=== PATIENT | male | born 1960 | race Two or more races ===

== ENCOUNTER 2018-12-10 10:09 | Outpatient (CLI) | payer OTHER ==
[~2018-12-10 10:09] MED LIST: GAVISCON ES TA1 EACH; LEVSIN0.125 MG PO; ZANTAC150 M3; ZANTAC300 MG PO; ZOFRAN8 MG PO
== END 2018-12-10 10:18 | disposition home or self-care (01) ==
LOC: TOM 10:09
DX: K86.81 Exocrine pancreatic insufficiency (principal); B20 Human immunodeficiency virus [HIV] disease

== ENCOUNTER 2019-08-10 17:56 | Outpatient (CLI) | payer OTHER | END 2019-08-10 18:29 | disposition home or self-care (01) | LOC: RAD 17:56 | DX: M54.5 Low back pain (principal) ==

== ENCOUNTER 2019-09-03 18:41 | Outpatient (CLI) | payer OTHER | END 2019-09-03 18:56 | disposition home or self-care (01) | LOC: RAD 18:41 | DX: M53.3 Sacrococcygeal disorders, not elsewhere classified (principal); M25.552 Pain in left hip; M25.551 Pain in right hip ==

== ENCOUNTER 2019-12-03 09:37 | Outpatient (CLI) | payer OTHER | END 2019-12-03 09:51 | disposition home or self-care (01) | LOC: RAD 09:37 → MRI 10:15 | PROVIDERS: ATTEND Physical Medicine & Rehabilitation Pain Medicine | DX: S32.030D Wedge compression fracture of third lumbar vertebra, subsequent encounter for fracture with routine healing (principal); M41.85 Other forms of scoliosis, thoracolumbar region | CPT/HCPCS: 72148 ==

== ENCOUNTER 2020-01-07 13:17 | Outpatient (CLI) | payer OTHER | END 2020-01-07 13:43 | disposition home or self-care (01) | LOC: NUCLEAR 13:17 | PROVIDERS: ATTEND Physical Medicine & Rehabilitation Pain Medicine | DX: M80.00XA Age-related osteoporosis with current pathological fracture, unspecified site, initial encounter for fracture (principal) ==

== ENCOUNTER 2020-01-15 08:54 | Emergency (ER) | payer OTHER ==
[~2020-01-15] VITALS: Ht 167.6 cm; Wt 99.8 kg
[2020-01-15] MEDS ORDERED: BIKTARVY 50-201 EACH (09:30)
[2020-01-15] MEDS ORDERED: COZAAR50 MG (09:30)
[2020-01-15] MEDS ORDERED: TERAZOSIN HCL1 M1 (09:32)
[2020-01-15] MEDS ORDERED: FINASTERIDE1 MG (09:32)
== END 2020-01-15 13:16 | disposition home or self-care (01) ==
LOC: ER 08:54
DX: A90 Dengue fever [classical dengue] (principal); B34.9 Viral infection, unspecified

== ENCOUNTER 2021-02-19 17:10 | Emergency (ER) | payer OTHER ==
[~2021-02-19] VITALS: Ht 167.6 cm; Wt 104.3 kg
[~2021-02-19 17:10] MED LIST changes: +BIKTARVY 50-201 EACH; +COZAAR50 MG; +FINASTERIDE1 MG; +TERAZOSIN HCL1 M1
[2021-02-19] MEDS ORDERED: FINASTERIDE5 MG PO (17:21)
[2021-02-19] MEDS ORDERED: TERAZOSIN HCL2 M1 PO (17:21)
[2021-02-19] MEDS ORDERED: LOSARTAN POTAS100 MG PO (17:21)
== END 2021-02-19 21:05 | disposition home or self-care (01) ==
LOC: ER 17:10
DX: R51.9 Headache, unspecified (principal); Z20.828 Contact with and (suspected) exposure to other viral communicable diseases

== ENCOUNTER 2021-05-08 14:36 | Outpatient (CLI) | payer OTHER ==
[~2021-05-08 14:36] MED LIST changes: +FINASTERIDE5 MG PO; +LOSARTAN POTAS100 MG PO; +TERAZOSIN HCL2 M1 PO
== END 2021-05-08 14:43 | disposition home or self-care (01) ==
LOC: RAD 14:36
PROVIDERS: ATTEND Physical Medicine & Rehabilitation Pain Medicine
DX: M47.817 Spondylosis without myelopathy or radiculopathy, lumbosacral region (principal)

== ENCOUNTER 2021-08-19 11:17 | Outpatient (CLI) | payer OTHER | END 2021-08-19 11:40 | disposition home or self-care (01) | LOC: RAD 11:17 | PROVIDERS: ATTEND Physical Medicine & Rehabilitation Pain Medicine | DX: M47.814 Spondylosis without myelopathy or radiculopathy, thoracic region (principal) ==

== ENCOUNTER 2021-09-22 10:22 | Outpatient (CLI) | payer OTHER | END 2021-09-22 10:35 | disposition home or self-care (01) | LOC: MRI 10:22 | PROVIDERS: ATTEND Physical Medicine & Rehabilitation Pain Medicine | DX: M47.814 Spondylosis without myelopathy or radiculopathy, thoracic region (principal) | CPT/HCPCS: 72146 ==

== ENCOUNTER 2022-05-28 13:36 | Outpatient (CLI) | payer OTHER | END 2022-05-28 13:49 | disposition home or self-care (01) | LOC: RAD 13:36 | PROVIDERS: ATTEND Orthopaedic Surgery Orthopaedic Surgery of the Spine | DX: M54.50 Low back pain, unspecified (principal); M54.6 Pain in thoracic spine; M54.2 Cervicalgia ==

== ENCOUNTER 2024-12-19 09:58 | Outpatient (CLI) | payer OTHER | END 2024-12-19 10:05 | disposition home or self-care (01) | LOC: RAD 09:58 | PROVIDERS: ATTEND General Practice | DX: F17.211 Nicotine dependence, cigarettes, in remission (principal); M54.2 Cervicalgia; M54.89 Other dorsalgia ==

== ENCOUNTER 2025-03-31 09:37 | Outpatient (CLI) | payer OTHER | END 2025-03-31 09:43 | disposition home or self-care (01) | LOC: MRI 09:37 | DX: B20 Human immunodeficiency virus [HIV] disease (principal); E78.00 Pure hypercholesterolemia, unspecified; R31.21 Asymptomatic microscopic hematuria; E66.09 Other obesity due to excess calories; N40.0 Benign prostatic hyperplasia without lower urinary tract symptoms; Z13.29 Encounter for screening for other suspected endocrine disorder; Z13.21 Encounter for screening for nutritional disorder; Z13.228 Encounter for screening for other metabolic disorders; Z12.5 Encounter for screening for malignant neoplasm of prostate; Z12.11 Encounter for screening for malignant neoplasm of colon; Z11.3 Encounter for screening for infections with a predominantly sexual mode of transmission; Z11.1 Encounter for screening for respiratory tuberculosis; Z13.1 Encounter for screening for diabetes mellitus; Z71.3 Dietary counseling and surveillance; Z71.89 Other specified counseling; I87.2 Venous insufficiency (chronic) (peripheral); I11.9 Hypertensive heart disease without heart failure; Z71.82 Exercise counseling; K63.5 Polyp of colon; K57.30 Diverticulosis of large intestine without perforation or abscess without bleeding; E55.9 Vitamin D deficiency, unspecified; Z76.0 Encounter for issue of repeat prescription; Z00.01 Encounter for general adult medical examination with abnormal findings; Z91.198 Patient's noncompliance with other medical treatment and regimen for other reason; E11.69 Type 2 diabetes mellitus with other specified complication; Z13.220 Encounter for screening for lipoid disorders; Z13.6 Encounter for screening for cardiovascular disorders; G31.84 Mild cognitive impairment of uncertain or unknown etiology; Z13.31 Encounter for screening for depression | CPT/HCPCS: 70551 ==